=== PATIENT | male | born 1985 | race Two or more races ===

== ENCOUNTER 2018-06-10 20:50 | Emergency (ER) | payer BC, MEDICAID, OTHER, SELFPAY ==
[~2018-06-10] VITALS: Ht 177.8 cm; Wt 83.4 kg
[2018-06-10 22:04] LABS: BASOPHILS % (AUTO) 0 % (0-1); EOSINOPHILS # (AUTO) 0.16 x10^3/uL (0-0.4); EOSINOPHILS % (AUTO) 2 % (1-7); LYMPHOCYTES # (AUTO) 1.42 x10^3/uL (1-3.4); LYMPHOCYTES % (AUTO) 14 % (22-44); MD NO; MEAN CORPUSCULAR HEMOGLOBIN 29.9 pg (27.5-34.5); MEAN CORPUSCULAR HGB CONC 33.6 g/dL (33.2-36.2); MEAN CORPUSCULAR VOLUME 88.9 fL (81-97); MEAN PLATELET VOLUME 9.3 fL (7.4-10.4); MONOCYTES # (AUTO) 0.46 x10^3/uL (0.2-0.8); MONOCYTES % (AUTO) 5 % (2-9); NEUTROPHILS # (AUTO) 7.94 x10^3/uL (1.8-6.8); NEUTROPHILS % (AUTO) 80 % (42-75); PLATELET COUNT 198 x10^3/uL (130-400); RED BLOOD COUNT 5.25 x10^6/uL (4.38-5.82); RED CELL DISTRIBUTION WIDTH 13.9 % (9.4-14.8)
[2018-06-10 22:15] LABS: ALANINE AMINOTRANSFERASE 21 U/L (12-78); ANION GAP 8 mmol/L (5-15); CALCIUM 8.6 mg/dL (8.5-10.1); CHLORIDE 105 mmol/L (98-107); CREATININE 0.87 mg/dL (0.7-1.3)
[2018-06-10 22:15] LABS: MICROSCOPIC NOT IND
[2018-06-10 22:18] LABS: ALKALINE PHOSPHATASE 83 U/L (45-117); BILIRUBIN,TOTAL 0.6 mg/dL (0.2-1.0); TOTAL PROTEIN 6.9 g/dL (6.4-8.2)
[2018-06-10 22:20] LABS: CULTURE INDICATED? NO
[2018-06-10] MEDS ORDERED: CEFTRIAXONE 250 MG ONE (22:55)
[2018-06-10] MEDS ORDERED: CEFTRIAXONE 250 MG IM ONE (23:00)
[2018-06-10 23:17] VITALS: BP 112/65
== END 2018-06-10 23:19 | disposition home or self-care (01) ==
LOC: ED 22:20
DX: N45.1 Epididymitis (principal)
CPT/HCPCS: 36415; 76870; 80053; 81003; 85025; 87491; 87591; 96372; 99285; J0696

== ENCOUNTER 2019-10-04 20:04 | Emergency (ER) | payer MEDICAID, OTHER ==
[~2019-10-04] VITALS: Ht 177.8 cm; Wt 89.9 kg
[2019-10-04 20:11] VITALS: BP 141/64
== END 2019-10-04 23:47 | disposition home or self-care (01) ==
LOC: ED 20:56
DX: L03.313 Cellulitis of chest wall (principal); L02.213 Cutaneous abscess of chest wall
CPT/HCPCS: 76642; 99284

== ENCOUNTER 2019-10-06 08:29 | Outpatient (CLI) | payer MEDICAID ==
[2019-10-06] MEDS ORDERED: LIDOCAINE 1%, 10ML ONE (08:40)
== END 2019-10-06 23:59 | disposition home or self-care (01) ==
LOC: RAD 08:29 → EDSTATUS 09:00 → RAD 23:59
PROVIDERS: ATTEND Emergency Medicine
DX: N61.1 Abscess of the breast and nipple (principal)
CPT/HCPCS: 10160; 75989; 87070; 87075; 87077; 87147; 87205; J3490; 10030; 76942

== ENCOUNTER 2020-11-28 22:38 | Emergency (ER) | payer MEDICAID ==
[~2020-11-28] VITALS: Ht 177.8 cm; Wt 101.6 kg
--- NOTE | 2020-11-28 23:34 | NUR ---
assessment made. chart up for MD to see.
[2020-11-28] MEDS ORDERED: BUPIVACAINE 0.25% ONE (23:48)
[2020-11-28] MEDS ORDERED: LIDOCAINE-MPF 1%, 5ML ONE (23:48)
[2020-11-28] MEDS ORDERED: HYDROcodone/APAP 5/325 TABLET ONE (23:49)
--- NOTE | 2020-11-28 23:51 | NUR ---
seen by PA. patient medicated for pain. lido and bupivicaine at Bedside.
[2020-11-29] MEDS ORDERED: LIDOCAINE-MPF 1%, 5ML INFIL ONE
[2020-11-29] MEDS ORDERED: LIDOCAINE 1%, 10ML INFIL ONE
[2020-11-29] MEDS ORDERED: HYDROcodone/APAP 5/325 TABLET PO ONE
[2020-11-29] MEDS ORDERED: BUPIVACAINE 0.25% INFIL ONE
--- NOTE | 2020-11-29 01:11 | NUR ---
patient discharged with prescriptions and instruction. verbalized understanding.
[2020-11-29 01:12] VITALS: BP 138/81
== END 2020-11-29 01:18 | disposition home or self-care (01) ==
LOC: ED 23:08
DX: K02.9 Dental caries, unspecified (principal)
CPT/HCPCS: 64400; 99284; J3490